=== PATIENT | male | born 1945 | race Caucasian/White ===

== ENCOUNTER 2018-07-01 11:42 | Day surgery (SDC) | payer MEDICARE ==
[~2018-07-01] VITALS: Ht 175.3 cm; Wt 112.5 kg
[~2018-07-01 11:42] MED LIST: AVANDAMET OR; BUSPAR15 MG PO; BUSPAR5 MG OR; CRESTOR20 MG PO; FLAGYL500 MG PO; FLOMAX0.4 M1 PO; GEMFIBROZIL600 MG OR; GLIPIZIDE10 MG PO; INDOCIN50 MG/CAP PO; JANUVIA100 MG PO; LEVAQUIN750 MG PO; LIPITOR10 MG OR; LIPITOR40 MG OR; LOPID600 MG PO; LOPRESSOR50 MG PO; METFORMIN500 MG PO; METOPROLOL50 MG OR; NITROSTAT0.4 MG SL; PERCOCET 10/31 COMBO PO; PREVACID30 M1 OR; PREVACID30 M1 PO; SERTRALINE50 MG PO; SYMBICORT 80-4.5MCG IN; TARKA PO; TARKA1 TA1 OR; TENORMIN100 MG PO; TOPROL XL200 MG OR; VICTOZA18 MG/3 ML SC; ZOLOFT25 MG OR; [UNRECOGNIZED DRUG - CODE] OR
[2018-07-01 17:23] VITALS: BP 143/65
[2018-07-01] MEDS ORDERED: DILAUDID4 MG PO (17:30)
== END 2018-07-01 17:45 | disposition home or self-care (01) ==
LOC: ORM 11:42
PROVIDERS: ATTEND Orthopaedic Surgery
PROC: 0MT30ZZ Resection of Right Elbow Bursa and Ligament, Open Approach (ICD-10-PCS; principal; 2018-07-01)
DX: M70.21 Olecranon bursitis, right elbow (principal); J44.9 Chronic obstructive pulmonary disease, unspecified; E11.9 Type 2 diabetes mellitus without complications; I10 Essential (primary) hypertension; M10.9 Gout, unspecified; Z87.891 Personal history of nicotine dependence

== ENCOUNTER → 2018-11-05 | Outpatient (REF) | payer MEDICARE ==
[~2018-11-05] MED LIST changes: +DILAUDID4 MG PO
== END | disposition home or self-care (01) ==
LOC: DI 12:22
PROVIDERS: ATTEND Physician Assistant Medical
DX: R05 Cough (principal)

== ENCOUNTER 2019-11-21 16:02 | Observation (INO) | payer MEDICARE ==
[~2019-11-21] VITALS: Ht 175.3 cm; Wt 109.2 kg
--- NOTE | 2019-11-21 16:02 | NUR ---
PT DIRECTLY TO ROOM FOR BEDSIDE TRIAGE.
[2019-11-21 16:45] LABS: HEMATOCRIT 38.9 % (39.0-50.0); HEMOGLOBIN 13.3 g/dl (14.0-18.0); IMMATURE GRANULOCYTES 0.3 % (0.0-5.0); MEAN CORPUSCULAR HGB 30.1 pG CALC (26.0-32.0); MEAN CORPUSCULAR HGB CONC 34.2 g/L CALC (32.0-36.0); NEUT# 9.39 thou/uL (1.82-7.42); RED BLOOD COUNT 4.42 mill/uL (4.70-6.10); RED CELL DISTRI WIDTH 13.7 % (11.5-15.5)
--- NOTE | 2019-11-21 17:00 | NUR ---
PT STATES PAIN IMPROVED SOMEWHAT, VS STABLE AND NO NEW COMPLAINTS OFFERED.
[2019-11-21 17:05] LABS: ALBUMIN 4.6 g/dL (3.2-5.0); ALKALINE PHOSPHATASE 57 u/l (38-126); ANION GAP 14 (6-22 (CALC)); BILIRUBIN, TOTAL 0.7 mg/dL (0.0-1.4); BUN 22 mg/dL (8-23); BUN/CREATININE RATIO 19 (12-20 (CALC)); CARBON DIOXIDE 24 mmol/l (22-30); CHLORIDE 103 mmol/l (95-108); CREATININE 1.1 mg/dL (0.7-1.3); GFR > 60 ML/MIN (>=60 (CALC)); GFR FOR AFR.AMER. > 60 ML/MIN (>=60 (CALC)); LIPASE 316 u/l (23-300); SGOT/AST 33 u/l (19-48); SODIUM 137 mmol/l (137-146); TOTAL PROTEIN 7.3 g/dL (6.3-8.2)
[2019-11-21 17:06] LABS: ACT PARTIAL THROMBO TIME 27.8 SECONDS (20.0-32.5); D-DIMER 0.41 mg/L (0.19-0.60); PROTHROMBIN TIME 10.8 SECONDS (9.0-12.5)
--- NOTE | 2019-11-21 18:00 | NUR ---
PT STATES PAIN IMPROVED NOW MORE OF A BURNING THROUGH OUT CHEST WALL AND EPIGASTRIC AREA, COMFORT MEASURES PROVIDED, CALL PALENCIA WITHIN REACH AND PT AWARE OF PLANNED ADMISSION FOR OBSERVATION
--- NOTE | 2019-11-21 18:40 | NUR ---
PT C/O NAUSEA AND EMESIS NOTED, MD AWARE MED ORDERED AND PT MEDICATED ACCORDINGLY, THEN AMBULATED TO BATHROOM FOR URINATION AND BM AND STATES FEELING MUCH BETTER
--- NOTE | 2019-11-21 18:44 | NUR ---
REPORT CALLED TO MEAGAN MAGAÑA.
--- NOTE | 2019-11-21 18:50 | NUR ---
PT TRASNPORTED TO MED SURG VIA WHEELCHAIR WITH TELE IN PLACE
[2019-11-21 19:20] VITALS: BP 148/72
[2019-11-21] MEDS ORDERED: LOPID600 MG PO (19:37)
--- NOTE | 2019-11-21 20:34 | NUR ---
PT MEDICATED ORDERS PROVIDE. NO S/O DISTRESS NOTED AT THIS TIME. PT ASSESSMENT AND ADMISSION COMPLETED AT THIS TIME. CALL LIGHT AT SIDE AND PT ENCOURAGED TO CALL NEEDS ARISE. REPORTS TOLERATING ICE CHIPS AT THIS TIME.
[2019-11-22 00:18] VITALS: BP 149/61
--- NOTE | 2019-11-22 01:15 | NUR ---
PT APPEARS TO BE SLEEPING, NO S/O DISTRESS NOTED. CALL LIGHT W/IN REACH.
--- NOTE | 2019-11-22 03:10 | NUR ---
PT REPORTED NOT BEING ABLE TO SLEEP AND BEING SLIGHTLY NAUSIOUS. HE IS IN LOW FOWLERS POSITION WATCHING TV. EXTRA PILLOW PROVIDED FOR COMFORT AND SALTINE CRACKERS W/DIET GINGERALE PROVIDED PER REQUEST. DENIED ANY OTHER NEEDS AT THIS TIME.
[2019-11-22 04:30] VITALS: BP 140/54
[2019-11-22 06:12] LABS: MAGNESIUM 1.7 mg/dL (1.6-2.3)
[2019-11-22 06:13] LABS: CHOLESTEROL HDL RATIO 8.3 (<4.4 (CALC))
--- NOTE | 2019-11-22 07:30 | NUR ---
PATIENT A/O X4, NO C/O PAIN, NO S/S RESP DISTRESS, PATIENT ON ROOM AIR, PATIENT NO C/O CHEST PAIN, NO C/O NAUSEA NO VOMITTING, PATIENT HEART RHYTHM IN NORMAL SINUS, PATIENT UP AB BHAVANA, PATIENT ABLE TO AMBULATE, PATIENT SKIN INTACT, LAST BOWEL MOVEMNT 11/15/19, WILL CONITINUE TO MONITOR PATIENT, CALL LIGHT WITHIN REACH
[2019-11-22 08:00] VITALS: BP 124/76
[2019-11-22] MEDS ORDERED: ZOFRAN4 MG/TAB PO (10:43)
[2019-11-22 11:03] VITALS: BP 129/63
--- NOTE | 2019-11-22 11:45 | NUR ---
PATIENT A/O, NO C/O PAIN, NO C/O CHEST PAIN, PATIENT NO S/S RESP DISTRESS, PATIENT ON ROOM AIR, PATIENT GLUCOSE LEVEL 122, PATIENT HEART RHYTHM IN NORMAL SINUS, PATIENT TROPONIN NEGATIVE X3, WILL CONTINUE TO MONITOR PATIENT, CALL LIGHT WITHIN REACH
--- NOTE | 2019-11-22 13:29 | NUR ---
PATIENT A/OX4, NO C/O PAIN, NO S/S RESP DISTRESS, PATIENT ON ROOM AIR, PATIENT DISCHARGED TO HOME SELF CARE, EDUCATED PATIENT ABOUT DC INSTRUCTIONS PATIENT STATED HE UNDERSTOOD DC INSTRUCTIONS, PATIENT NOTIFIED PRESCRIPTION FOR ZOFRAN SENT TO [facility], PATIENT IV REMOVED, PATIENT ASSISTED OFF FLOOR VIA WHEELCHAIR BY STAFF
== END 2019-11-22 13:26 | disposition home or self-care (01) ==
LOC: ED 16:02 → ED-I 17:40 → ED 18:07 → ED-I 18:08 → MS2 18:09
PROVIDERS: Emergency Medicine; ADMIT Internal Medicine; ATTEND Internal Medicine
DX: R07.9 Chest pain, unspecified (principal); K52.9 Noninfective gastroenteritis and colitis, unspecified; I10 Essential (primary) hypertension; E11.9 Type 2 diabetes mellitus without complications; I42.9 Cardiomyopathy, unspecified; E78.5 Hyperlipidemia, unspecified; J44.9 Chronic obstructive pulmonary disease, unspecified; Z87.891 Personal history of nicotine dependence; R06.02 Shortness of breath
CPT/HCPCS: G0378

== ENCOUNTER 2021-08-16 12:55 | Inpatient (IN) | payer MEDICARE ==
[~2021-08-16] VITALS: Ht 175.3 cm; Wt 107.7 kg
[~2021-08-16 12:55] MED LIST changes: +ZOFRAN4 MG/TAB PO
--- NOTE | 2021-08-16 13:02 | NUR ---
PT TO ROOM VIA WHEELCHAIR.
--- NOTE | 2021-08-16 13:10 | NUR ---
ACCUCHECK PERFORMED WITH RESULT OF 320-DR LUCIE MARLOW
[2021-08-16 13:38] LABS: HEMATOCRIT 36.8 % (39.0-50.0); HEMOGLOBIN 12.4 g/dl (14.0-18.0); IMMATURE GRANULOCYTES 0.2 % (0.0-5.0); MEAN CORPUSCULAR HGB 30.3 pG CALC (26.0-32.0); MEAN CORPUSCULAR HGB CONC 33.7 g/dL CAL (32.0-36.0); NEUT# 6.74 thou/uL (1.82-7.42); RED BLOOD COUNT 4.09 mill/uL (4.70-6.10); RED CELL DISTRI WIDTH 12.8 % (11.5-15.5)
[2021-08-16 13:47] LABS: ALBUMIN 4.1 g/dL (3.2-5.0); ALKALINE PHOSPHATASE 69 u/l (38-126); ANION GAP 17 (6-22 (CALC)); BILIRUBIN, TOTAL 0.6 mg/dL (0.0-1.4); BUN 18 mg/dL (8-23); BUN/CREATININE RATIO 11 (12-20 (CALC)); CHLORIDE 105 mmol/l (95-108); CREATININE 1.7 mg/dL (0.7-1.3); GFR 40 ML/MIN (>=60 (CALC)); GFR FOR AFR.AMER. 48 ML/MIN (>=60 (CALC)); SGOT/AST 39 u/l (19-48); SODIUM 136 mmol/l (137-146); TOTAL PROTEIN 6.8 g/dL (6.3-8.2)
[2021-08-16 13:51] LABS: CARBON DIOXIDE 18 mmol/l (22-30)
--- NOTE | 2021-08-16 14:40 | NUR ---
DR FAULKNER IN TO DO CENTRAL LINE IN RIGHT NECK. PT PREPPED, BECOMES ANXIOUS AND PROCEDURE HALTED. PT ASSISTED WITH SITTING UP AND CALMED.
--- NOTE | 2021-08-16 14:50 | NUR ---
DR FAULKNER PERFORMS CENTRAL LINE IN RIGHT FEMORAL. PT TOLRATES WELL.
--- NOTE | 2021-08-16 15:01 | NUR ---
NEOSYNEPHRINE 2ML GIVEN IV PUSH PER MD ORDER FOR HYPOTENSION
--- NOTE | 2021-08-16 15:04 | NUR ---
NEOSYNEPHRINE 2ML IV PUSH PER MD ORDER.
--- NOTE | 2021-08-16 15:07 | NUR ---
NEOSYNEPHRINE 2ML GIVEN IV PUSH PER MD ORDER.
--- NOTE | 2021-08-16 15:10 | NUR ---
16FR DEL REAL CATH PLACED, URINE RETURNED, 10ML BALLOON INFLATED. PT TOLERATED WELL. TUBING SECURED ON LEFT UPPER LEG.
--- NOTE | 2021-08-16 15:24 | NUR ---
NEOSYNEPHRINE 2ML IV PUSH PER MD ORDER.
--- NOTE | 2021-08-16 15:30 | NUR ---
PT TO CT VIA STRETCHER WITH ZOLL MONITOR ATTACHED. PT REMAINS WITH HYPOTENSION, AND IS SOMEWHAT ANXIOUS. RN STAYS WITH MT DURING IMAGING.
--- NOTE | 2021-08-16 15:40 | NUR ---
PT TRANSFERRED TO CT PLATFORM AND BECOMES ANXIOUS AND STATES HE IS HAVING DIFFICULTY BREATHING AND THAT HE IS GOING TO HAVE BOWEL MOVEMENT. PROCEDURE HALTED, PT ASSISTED WITH SITTING UP AND ASSISTED TO BSC. PT'S BREATHING IMPROVES. VSS-OXYGEN SAT IS UPPER 90S. PT ASSISTED BACK TO CT PLATFORM AND AFTER DISCUSSING WHAT NEEDS TO HAPPEN, PT IS AGREEABLE AND ABLE TO COMPLETE CT WITHOUT DIFFICULTY.
--- NOTE | 2021-08-16 16:22 | NUR ---
PT RETURNED FROM RADIOLOGY
[2021-08-16 16:32] LABS: IMMATURE GRANULOCYTES 0.3 % (0.0-5.0); MEAN CELL VOLUME 89.7 fL CALC (80.0-100.0); MEAN CORPUSCULAR HGB 30.3 pG CALC (26.0-32.0); MEAN CORPUSCULAR HGB CONC 33.8 g/dL CAL (32.0-36.0); NEUT# 11.63 thou/uL (1.82-7.42); RED BLOOD COUNT 3.4 mill/uL (4.70-6.10); RED CELL DISTRI WIDTH 12.9 % (11.5-15.5)
[2021-08-16 16:33] LABS: HEMATOCRIT 30.5 % (39.0-50.0); HEMOGLOBIN 10.3 g/dl (14.0-18.0)
--- NOTE | 2021-08-16 17:16 | NUR ---
DR FAULKNER IN TO SPEAK WITH PT ABOUT IMAGING RESULTS AND POC.
--- NOTE | 2021-08-16 17:29 | NUR ---
DR FAULKNER PERFORMED RECTAL EXAM, NO BLOOD PRESENT ON FECAL OCCULT.
[2021-08-16 17:49] LABS: URINE BILIRUBIN - DIPSTICK NEGATIVE (NEGATIVE); URINE BLOOD DIPSTICK SMALL (NEGATIVE); URINE COLOR YELLOW; URINE GLUCOSE - DIPSTICK 250 mg/dL (NEGATIVE); URINE KETONE NEGATIVE (NEGATIVE); URINE LEUK ESTERASE NEGATIVE (NEGATIVE); URINE PROTEIN - DIPSTICK >=300 mg/dL (NEG-TRACE); URINE SPECIFIC GRAVITY 1.025; URINE UROBILINOGEN - DIPSTICK 0.2 E.U./dL (0.2)
[2021-08-16 17:56] LABS: URINE NITRITE - DIPSTICK NEGATIVE (Negative)
[2021-08-16 17:57] LABS: URINE SQUAMOUS EPITHELIAL CELL MANY EPI/hpf (0-FEW)
--- NOTE | 2021-08-16 17:58 | NUR ---
SBAR REPORT CALLED TO [facility] ICU
--- NOTE | 2021-08-16 18:40 | NUR ---
PT TAKEN TO ICU VIA STRETCHER IN STABLE CONDITION. ZOLL MONITOR IN PLACE AT TIME OF ADMISSION. PT'S BELONGINGS AND PAPERWORK HANDED OFF TO [facility]AG[facility].
[2021-08-16 19:00] VITALS: BP 118/72
--- NOTE | 2021-08-16 19:00 | NUR ---
REPORT RECEIVED AT [facility] BEDSIDE FROM Hector PATRICK RN. CARE OF PT ASSUMED AT THIS TIME.
--- NOTE | 2021-08-16 19:39 | NUR ---
POINT OF CARE GLUCOSE 487mg/dl. STAT SERUM GLUCOSE ORDERED TO CONFIRM AND DRAWN FROM R-GROIN TLC.
[2021-08-16 20:00] VITALS: BP 140/60
--- NOTE | 2021-08-16 20:08 | NUR ---
SPOKE WITH DR. KAY GEE: GLUCOSE LEVEL, PT'S C/O ANXIETY, AND SOB W/ EXERTION. ORDERS FOR DUONEB, XANAX, AND HIGHER INSULIN COVERAGE AND ADDITIONAL LONG ACTING COVERAGE RECEIVED.
[2021-08-16 21:00] VITALS: BP 154/68
[2021-08-16 22:00] VITALS: BP 141/68
[2021-08-16 23:00] VITALS: BP 183/77
[2021-08-17] VITALS (14 sets, daily range): BP systolic 122–157; BP diastolic 58–74
--- NOTE | 2021-08-17 01:50 | NUR ---
LEVOPHED AND EPINEPHRINE GTT INCREMENTALLY TITRATED THROUGHOUT SHIFT. LEVO AND EPI GTT D/C'D AT THIS TIME. PT'S NIBP TOLERATES WELL.
--- NOTE | 2021-08-17 05:10 | NUR ---
AM LABS COLLECTED VIA RIGHT GROIN TLC.
[2021-08-17 05:52] LABS: HEMATOCRIT 31.5 % (39.0-50.0); HEMOGLOBIN 10.7 g/dl (14.0-18.0); MEAN CELL VOLUME 89.7 fL CALC (80.0-100.0); MEAN CORPUSCULAR HGB 30.5 pG CALC (26.0-32.0); RED BLOOD COUNT 3.51 mill/uL (4.70-6.10); RED CELL DISTRI WIDTH 13.1 % (11.5-15.5)
[2021-08-17 06:17] LABS: CREATININE 1.6 mg/dL (0.7-1.3); MAGNESIUM 1.6 mg/dL (1.6-2.3); POTASSIUM 3.6 mmol/l (3.5-5.1)
--- NOTE | 2021-08-17 07:49 | NUR ---
AMYMEG is a 76 year old Male. Admitted for septic shock. blood culture pending. Ht: 69 in, Wt: 106.4 kg, SCr 1.6 mg/dl:, CrCl (calc) = 49 ml/min WBC: 11.8 thou/ul , Tmax: 98.2 F . Tcurrent: 97.4 F HR: 77 beats/min, BP: 151/70 mmHg, RR 15 breaths/min,Sa02: 95 % Goal level is 15-20 mg/L. 1. Start vancomycin 1500 mg IV q24h. 2. Check trough 30 minutes before 4th dose on 08/19/21 at 1630. 3. Monitor BMP daily while on vancomycin 1500 mg IV q24h. Pharmacy will continue to follow.
--- NOTE | 2021-08-17 10:00 | NUR ---
PT IS AWAKE, ALERT, ORIENTED X 3. LUNGS CLEAR, RA. PT TO BSC FOR SMALL BM THIS MORNING. BLOOD PRESSURE REMAINS WNL WITHOUT PRESSORS. PT FEELS WELL, NO COMPLAINTS OR EVIDENCE OF DISTRESS.
--- NOTE | 2021-08-17 13:06 | NUR ---
PT WITHOUT CHANGE IN STATUS, REMAINS STABLE WITHOUT PRESSORS. HAS VISITED, IS TAKING HIS HEARING AIDES HOME WITH HER.
--- NOTE | 2021-08-17 17:30 | NUR ---
PT HAS BEEN TRANSFERRED TO MED/SURG FLOOR, [place] [id number]. REPORT WAS PROVIDED TO MARCIANO RHODES BY PHONE. PT LEAVES ICU IN STABLE CONDITION, TRANSPORTED BY WHEELCHAIR.
--- NOTE | 2021-08-17 18:10 | NUR ---
REPORT RECEIVED FROM RADHA IN ICU,PT TRANSPORTED TO UNIT VIA W/C @ 1810. ALERT AND ORIENTED X 4, DENIES DISCOMFORT/PAIN, ORIENTED TO ROOM AND CALL PALENCIA. IV ABT INFUSING TO SITE IN RIGHT GROIN, # 20 IV CATHETER ALSO NOTED IN RAC AND LAC BOTH SALINE LOCKED. TELE MONITOR IN PLACE, SETTLED IN BED WHICH IS IN LOWEST POSITION AND CALL LIGHT PLACED IN REACH.
--- NOTE | 2021-08-17 20:04 | NUR ---
PATIENT ALERT AND ORIENTED. ABLE TO MAKE NEEDS KNOWN. ASSESSMENT COMPLETE AT THIS TIME. CALL LIGHT AND BELONGINGS REMAIN IN PLACE.
--- NOTE | 2021-08-17 20:48 | NUR ---
GAVE PATIENT PRN XANAX PER REQUEST FOR INCREASED ANXIETY. PATIENT OBSERVED GETTING UP AND WALKING TOO AND FROM BATHROOM OFTEN TO VOID AND BM AT TIMES.
--- NOTE | 2021-08-17 23:45 | NUR ---
LEFT AC IV SITE OBSERVED RESTING ON PATIENTS ARM. CATHETER TIP INTACT.
[2021-08-18] VITALS: BP 159/76
--- NOTE | 2021-08-18 00:23 | NUR ---
PATIENT RESTING IN BED ON HIS RIGHT SIDE. NO SIGNS OF PAIN OR DISTRESS NOTED. CALL LIGHT AND BELONGINGS REMAIN IN REACH.
[2021-08-18 04:00] VITALS: BP 146/84
--- NOTE | 2021-08-18 04:29 | NUR ---
BLADDER SCANNED PATIENT DUE TO COMPLAINTS OF NOT BEING ABLE TO VOID FULLY. PATIENT WAS VOIDING THROUGH SHIFT, BUT MINIMAL AMOUNTS AT A TIME. BLADDER SCAN SHOWED 597CC. ORDER OBTAINED BY CONFECTIONERY COOKER PROVIDER TO STRAIGHT CATH PATIENT X1. OUTPUT OF 500CC YELLOW URINE WITH SMALL BLOOD CLOT LIKE SUBSTANCE.
[2021-08-18 06:22] LABS: ANION GAP 13 (6-22 (CALC)); BUN 13 mg/dL (8-23); BUN/CREATININE RATIO 11 (12-20 (CALC)); CARBON DIOXIDE 23 mmol/l (22-30); CHLORIDE 107 mmol/l (95-108); CREATININE 1.2 mg/dL (0.7-1.3); GFR 59 ML/MIN (>=60 (CALC)); GFR FOR AFR.AMER. > 60 ML/MIN (>=60 (CALC)); HEMATOCRIT 34.9 % (39.0-50.0); HEMOGLOBIN 11.8 g/dl (14.0-18.0); MAGNESIUM 1.6 mg/dL (1.6-2.3); MEAN CELL VOLUME 89.5 fL CALC (80.0-100.0); MEAN CORPUSCULAR HGB 30.3 pG CALC (26.0-32.0); MEAN CORPUSCULAR HGB CONC 33.8 g/dL CAL (32.0-36.0); POTASSIUM 3.9 mmol/l (3.5-5.1); RED BLOOD COUNT 3.9 mill/uL (4.70-6.10); RED CELL DISTRI WIDTH 13.1 % (11.5-15.5); SODIUM 140 mmol/l (137-146)
--- NOTE | 2021-08-18 07:14 | NUR ---
#20 IN THE RIGHT AC REMOVED. CATHETER TIP INTACT. PATIENT HAS ACCESS FROM TRIPLE LUMEN SITE TO RIGHT GROIN.
[2021-08-18 07:45] VITALS: BP 148/72
--- NOTE | 2021-08-18 07:45 | NUR ---
PATIENT LAYING IN BED AT THIS TIME DENIES PAIN. PATIENT LOKIE DRIVER DONE AT THIS TIME SEE INTERVENTIONS. PATIENT HAS TRIPLE LUMEN IN R CARMEN AND FLUSHED AT THIS TIME. TELE MONITOR IN PLACE CALL LIGHT WITHIN REACH.
[2021-08-18 10:56] VITALS: BP 173/79
[2021-08-18] MEDS ORDERED: AMOX/K CLAV875 M1 PO (11:07)
--- NOTE | 2021-08-18 11:13 | NUR ---
ZOYSIN HUNG AT THIS TIME PER PHYSICIAN PATIENT IS TO BE DISCHARGED AFTER ANTIBIOTIC INFUSED.
--- NOTE | 2021-08-18 12:18 | NUR ---
PATIENT SITTING UP IN CHAIR AT THIS TIME WITH AT BEDSIDE PATIENT ALERT AND ORIENTED AND D/C AT THIS TIME. PATIENT VERBALIZES UNDERSTANDING OF D/C AT THIS TIME.
--- NOTE | 2021-08-18 13:09 | NUR ---
PATIENT D/C AT THIS TIME PATIENT VERBALIZED UNDERSTANDING OF DC INSTRUCTIONS. PATIENT TRIPLE RIGHT GROIN CENTRAL LINE REMOVED UNDER ASCEPTIC TECHINQUE. LINE PULLED AND TIP INTACT. AREA CLEANSED WIHT CLOHOEXADINE SWAB AND BIO-PATCH PLACE WIHT TEGADERM PLACED AND PATIENT INSTRUCTED TO REMOVE IN 24 HRS. AND LET AIR AND PATIENT MAY SHOWER NORMAL. PATIENT AND PATINET FULLY UNDERSTOOD INSTRUCTION AT THIS TIME. TELE MONITOR REMOVED AND DANIELA IN ED NOTIFIED AT THIS TIME.
--- NOTE | 2021-08-18 13:26 | NUR ---
Discharge instructions given. Patient verbalizes understanding of same. Discharged in stable condition via Wheelchair to Home with family. All belongings sent with pt.
== END 2021-08-18 13:26 | disposition home or self-care (01) | DRG 871 ==
LOC: ED 12:55 → ED-I 17:10 → ED 17:30 → ICU 17:31 → MS2 23:02 → ICU 23:02 → MS2 08-17 18:10
PROVIDERS: Family Medicine; ADMIT Hospitalist; ATTEND Hospitalist
PROC: 06HY33Z Insertion of Infusion Device into Lower Vein, Percutaneous Approach (ICD-10-PCS; principal; 2021-08-16)
PROC: 0T9B70Z Drainage of Bladder with Drainage Device, Via Natural or Artificial Opening (ICD-10-PCS; 2021-08-16)
DX: A41.9 Sepsis, unspecified organism (principal); R65.21 Severe sepsis with septic shock; E87.2 Acidosis; I42.9 Cardiomyopathy, unspecified; I95.9 Hypotension, unspecified; I10 Essential (primary) hypertension; E11.9 Type 2 diabetes mellitus without complications; J44.9 Chronic obstructive pulmonary disease, unspecified; R19.7 Diarrhea, unspecified; E78.5 Hyperlipidemia, unspecified; F41.1 Generalized anxiety disorder; Z87.891 Personal history of nicotine dependence; Z79.84 Long term (current) use of oral hypoglycemic drugs; Z20.822 Contact with and (suspected) exposure to COVID-19
CPT/HCPCS: J3370; Q9967

== ENCOUNTER 2023-03-22 18:49 | Emergency (ER) | payer MEDICARE ==
[~2023-03-22] VITALS: Ht 175.3 cm; Wt 100.0 kg
[~2023-03-22 18:49] MED LIST changes: +AMOX/K CLAV875 M1 PO
[2023-03-22 19:56] VITALS: BP 134/58
== END 2023-03-22 21:49 | disposition home or self-care (01) ==
LOC: ED 18:49
DX: S81.811A Laceration without foreign body, right lower leg, initial encounter (principal); I10 Essential (primary) hypertension; E11.9 Type 2 diabetes mellitus without complications; J44.9 Chronic obstructive pulmonary disease, unspecified; W01.0XXA Fall on same level from slipping, tripping and stumbling without subsequent striking against object, initial encounter; Y92.009 Unspecified place in unspecified non-institutional (private) residence as the place of occurrence of the external cause; Z79.84 Long term (current) use of oral hypoglycemic drugs

== ENCOUNTER 2023-10-19 11:33 | Observation (INO) | payer MEDICARE ==
[~2023-10-19] VITALS: Ht 175.3 cm; Wt 74.8 kg
[2023-10-19] VITALS (18 sets, daily range): BP systolic 136–175; BP diastolic 70–96
--- NOTE | 2023-10-19 12:13 | NUR ---
PATIENT PRESENTS WITH GENERALIZED FATIQUE. FLU AND COVID SWABS OBTAINED.
--- NOTE | 2023-10-19 13:00 | NUR ---
PT IS ALERT. PT SITTING ON BEDSIDE. CALL LIGHT IN REACH.
[2023-10-19] MEDS ORDERED: MULTIPLE VITAMIN 10 ML,THIAMINE HCL 100 MG in DEXTROSE 5% / 0.9% NACL 1,000 ML IV ONE (13:45)
[2023-10-19 13:50] LABS: BASO% 0.5 % (0-3); EOS% 2.4 % (0-8); HEMATOCRIT 43.1 % (39.0-50.0); HEMOGLOBIN 14.3 g/dl (14.0-18.0); IMMATURE GRANULOCYTES 0.2 % (0.0-5.0); LYMPH% 10.1 % (15-41); MEAN CELL VOLUME 96.2 fL CALC (80.0-100.0); MEAN CORPUSCULAR HGB 31.9 pG CALC (26.0-32.0); MEAN CORPUSCULAR HGB CONC 33.2 g/dL CAL (32.0-36.0); MONO% 9.6 % (2-13); NEUT# 4.5 thou/uL (1.82-7.42); NEUT% 77.2 % (42-76); RED BLOOD COUNT 4.48 mill/uL (4.70-6.10); RED CELL DISTRI WIDTH 12.3 % (11.5-15.5)
--- NOTE | 2023-10-19 14:00 | NUR ---
PT ADVISED OF CONTINUED WAIT TIMES. PT VERBALIZED UNDERSTANING. PT COMFORTBLE. VSS
[2023-10-19 14:09] LABS: ALBUMIN 4.6 g/dL (3.2-5.0); ALKALINE PHOSPHATASE 100 u/l (38-126); BILIRUBIN, TOTAL 0.5 mg/dL (0.2-1.3); CHLORIDE 112 mmol/l (95-108); GFR FOR AFR.AMER. > 60 ML/MIN (>=60 (CALC)); GFR OTHER RACES > 60 ML/MIN (>=60 (CALC)); POTASSIUM 4.3 mmol/l (3.5-5.1); SGOT/AST 32 u/l (19-48); TOTAL PROTEIN 7.5 g/dL (6.3-8.2)
[2023-10-19 14:10] LABS: ANION GAP 15 (6-22 (CALC)); BUN 40 mg/dL (8-23); BUN/CREATININE RATIO 40 (12-20 (CALC)); CARBON DIOXIDE 30 mmol/l (22-30); SODIUM 153 mmol/l (137-146)
--- NOTE | 2023-10-19 15:10 | NUR ---
PT IS ALERT. VSS. CALL LIGHT IN REACH. PT PROVIDED A BLANKET.
--- NOTE | 2023-10-19 16:00 | NUR ---
PT SITTING IN CHAIR AT BEDSIDE. VSS. CALL LIGHT IN REACH.
--- NOTE | 2023-10-19 17:00 | NUR ---
PT VERBALIZED NO NEEDS. CALL LIGHT IN REACH. VSS.
[2023-10-19] MEDS ORDERED: SODIUM CHLORIDE 0.9% 1,000 ML IV ONE (17:25)
[2023-10-19] MEDS ORDERED: INSULIN REGULAR (HUMAN) 100 UNIT/ML INJ IV ONE (17:25)
--- NOTE | 2023-10-19 18:36 | NUR ---
PT IS RESTING. EASILY AROUSABLE. VSS. CALL LIGHT IN REACH.
[2023-10-19 20:19] LABS: ANION GAP 10 (6-22 (CALC)); BUN 36 mg/dL (8-23); BUN/CREATININE RATIO 45 (12-20 (CALC)); CARBON DIOXIDE 28 mmol/l (22-30); CHLORIDE 119 mmol/l (95-108); CREATININE 0.8 mg/dL (0.7-1.3); GFR FOR AFR.AMER. > 60 ML/MIN (>=60 (CALC)); GFR OTHER RACES > 60 ML/MIN (>=60 (CALC)); SODIUM 153 mmol/l (137-146)
--- NOTE | 2023-10-19 20:20 | NUR ---
PATIENT SITTING UP IN CHAIR WITH NO ACUTE DISTRESS NOTED.
[2023-10-19 20:59] LABS: URINE BILIRUBIN - DIPSTICK Negative (NEGATIVE); URINE BLOOD DIPSTICK Large (NEGATIVE); URINE COLOR Yellow; URINE GLUCOSE - DIPSTICK >=1000 mg/dL (NEGATIVE); URINE KETONE Negative (NEGATIVE); URINE LEUK ESTERASE Moderate (NEGATIVE); URINE NITRITE - DIPSTICK Negative (Negative); URINE PROTEIN - DIPSTICK Negative (NEG-TRACE); URINE UROBILINOGEN - DIPSTICK 0.2 E.U./dL (0.2)
--- NOTE | 2023-10-19 21:00 | NUR ---
NO CHANGES NOTED
[2023-10-19 21:01] LABS: URINE BACTERIA MANY hpf
[2023-10-19] MEDS ORDERED: SODIUM CHLORIDE 0.9% 1,000 ML IV PRN (21:30)
[2023-10-19] MEDS ORDERED: MAGNESIUM HYDROXIDE 30 ML UDC PO PRN (21:30)
[2023-10-19] MEDS ORDERED: ACETAMINOPHEN 325 MG/TAB PO PRN (21:30)
[2023-10-19] MEDS ORDERED: ONDANSETRON HCl 4 MG/2 ML SDV IV PRN (21:45)
--- NOTE | 2023-10-19 22:00 | NUR ---
NO CHANGES NOTED
--- NOTE | 2023-10-19 23:10 | NUR ---
RECEIVED REPORT FROM ED NURSE. PT WAS BROUGHT UP VIA WHEELCHAIR. PT IS NOW RESTING IN BED AT THIS TIME. PT ORIENTATED TO ROOM AND TO CALL LIGHT SYSTEM. PT AWARE OF PLAN OF CARE FOR THE NIGHT. PT DENIES OF PAIN AT THIS TIME. SAFETY PRECAUTIONS INPLACE AND CALL LIGHT WITHIN REACH.
--- NOTE | 2023-10-19 23:11 | NUR ---
PATIENT TRANSPORTED TO [facility] WITH TELE MONITOR IN PLACE.
[2023-10-20 04:02] VITALS: BP 146/74
--- NOTE | 2023-10-20 04:08 | NUR ---
PT IS IN BED AT THIS TIME SLEEPING COMFORTABLY. PT SHOWS NO SIGNS OF PAIN OR DISCOMFORT. SAFETY PRECAUTIONS IN PLACE AND CALL LIGHT WITHIN REACH.
[2023-10-20 04:54] LABS: BASO% 0.4 % (0-3); EOS% 3.6 % (0-8); MEAN CELL VOLUME 98.1 fL CALC (80.0-100.0); MEAN CORPUSCULAR HGB 31.8 pG CALC (26.0-32.0); MEAN CORPUSCULAR HGB CONC 32.4 g/dL CAL (32.0-36.0); MONO% 11.8 % (2-13); NEUT# 3.43 thou/uL (1.82-7.42); NEUT% 72.2 % (42-76); RED BLOOD COUNT 3.65 mill/uL (4.70-6.10); RED CELL DISTRI WIDTH 12.6 % (11.5-15.5)
[2023-10-20 05:14] LABS: HEMATOCRIT 35.8 % (39.0-50.0); HEMOGLOBIN 11.6 g/dl (14.0-18.0)
[2023-10-20 05:29] LABS: ALKALINE PHOSPHATASE 81 u/l (38-126); ANION GAP 8 (6-22 (CALC)); BILIRUBIN, TOTAL 0.3 mg/dL (0.2-1.3); BUN 35 mg/dL (8-23); BUN/CREATININE RATIO 43 (12-20 (CALC)); CARBON DIOXIDE 27 mmol/l (22-30); CHLORIDE 120 mmol/l (95-108); CREATININE 0.8 mg/dL (0.7-1.3); GFR FOR AFR.AMER. > 60 ML/MIN (>=60 (CALC)); GFR OTHER RACES > 60 ML/MIN (>=60 (CALC)); POTASSIUM 3.5 mmol/l (3.5-5.1); SGOT/AST 23 u/l (19-48); SODIUM 152 mmol/l (137-146)
[2023-10-20 05:36] LABS: ALBUMIN 3.3 g/dL (3.2-5.0); TOTAL PROTEIN 5.7 g/dL (6.3-8.2)
[2023-10-20] MEDS ORDERED: SODIUM CHLORIDE 0.45% 1,000 ML IV PRN (06:25)
[2023-10-20] MEDS ORDERED: INSULIN LISPRO 100 UNITS/ML ML SC SCH ×2 (07:00)
[2023-10-20 07:32] VITALS: BP 182/72
--- NOTE | 2023-10-20 08:00 | NUR ---
RESTING IN BED. ALERT ORIENTED REQUESTION TO SEE MD. NOTIFIED MD HAS NOT ARRIVED OF YET BUT WILL BE IN SOON TO MAKE ROUNDS. CALL LIGHT IN REACH.
[2023-10-20] MEDS ORDERED: ALLOPURINOL 100 MG/TAB PO SCH (09:00)
[2023-10-20] MEDS ORDERED: SERTRALINE HCL 50 MG/TAB PO SCH (09:00)
[2023-10-20] MEDS ORDERED: busPIRone HCL 5 MG/TAB PO SCH (09:00)
[2023-10-20] MEDS ORDERED: VERAPAMIL HCL PO SCH (09:00)
[2023-10-20] MEDS ORDERED: hydrALAZINE HCL 20 MG/ML VIAL(1 ML) IV PRN (11:25)
[2023-10-20] MEDS ORDERED: LOSARTAN Potassium 25 MG/TAB PO SCH (12:00)
[2023-10-20 13:05] LABS: ANION GAP 10 (6-22 (CALC)); BUN 30 mg/dL (8-23); BUN/CREATININE RATIO 35 (12-20 (CALC)); CARBON DIOXIDE 29 mmol/l (22-30); CHLORIDE 117 mmol/l (95-108); CREATININE 0.9 mg/dL (0.7-1.3); GFR FOR AFR.AMER. > 60 ML/MIN (>=60 (CALC)); GFR OTHER RACES > 60 ML/MIN (>=60 (CALC)); POTASSIUM 3.7 mmol/l (3.5-5.1); SODIUM 152 mmol/l (137-146)
[2023-10-20] MEDS ORDERED: ALPRAZolam 0.25 MG PO PRN (16:05)
--- NOTE | 2023-10-20 17:00 | NUR ---
SECOND BOLUS FEEDING OF JEVITY GIVEN. MD SPOKE WITH PATIENT ABOUT BEING ON GLUCERNA VS JEVITY DUE TO DIABETES FREINDLY. PATIENT STATED HE WAS NOT INTERESTED IN CHANGING ANY OF THAT. ZOFRAN PREMEDICATED TO AVOID NAUSEA WITH THE FEEDINGS. PATIENT STATED HE HAD NOT GIVEN HIMDELF ANYTHING THROUGH THE TUBE IN 2 OR 3 DAYS DUE TO THE NAUSEA. MD MADE AWARE.
[2023-10-20 18:50] LABS: ANION GAP 17 (6-22 (CALC)); BUN 27 mg/dL (8-23); BUN/CREATININE RATIO 33 (12-20 (CALC)); CARBON DIOXIDE 25 mmol/l (22-30); CHLORIDE 113 mmol/l (95-108); CREATININE 0.8 mg/dL (0.7-1.3); GFR FOR AFR.AMER. > 60 ML/MIN (>=60 (CALC)); GFR OTHER RACES > 60 ML/MIN (>=60 (CALC)); POTASSIUM 3.1 mmol/l (3.5-5.1); SODIUM 152 mmol/l (137-146)
[2023-10-20 19:35] VITALS: BP 126/55
--- NOTE | 2023-10-20 19:54 | NUR ---
JEVITY 1.5 GIVEN VIA PEG TUBE. HAD SLIGHT NAUSEA WITH LAST 50CC OF FEEDING. EXPRESSED NEED TO CALL FOR ASSISTANCE WITH AMBULATING AND GOING TO BATHROOM DUE TO WEAKNESS AND IV FLUIDS. BECAME VERBALLY CONFRONTATIONAL. PATIENTS AFFECT IS SOMEWHAT DEPRESSED. BECOMES CONFRONTATIONAL WHEN ASKED TO DO ANYTHING HE IS NOT AGREEABLE WITH, SUCH CALLING FOR ASSISTANCE WITH BATHROOM. CALL LIGHT IN REACH.
[2023-10-20] MEDS ORDERED: ENOXAPARIN SODIUM 40 MG/0.4 ML SYR SC SCH (21:00)
--- NOTE | 2023-10-20 21:50 | NUR ---
PT IN BED NO S/S OF DISTRESS NOTED. BREATHING IS EVEN AND UNLABORED. PT DENIES PAIN OR DISCOMFORT. SHIFT ASSESMMET COMPLETED. PT IS AT ROOM AIR. LUNGS ARE CLEAR ALL LOBES. PEG TUNE IN PLACE. PT FEED VIA PEG TUBE WITHOUT COMPLICATIONS. PT RESIDUEAL IS 0 CC. PT AMBULATED TO RESTROOM AND BACK TO BED. IV TO LAC INFUSING 0.45 NORMAL SALINE. NO NEEDS OR CONCERN VOICED AT THIS TIME. CALL LIGHT IN REACH AND BED IN LOWEST POSITION.
[2023-10-20 23:21] VITALS: BP 123/62
--- NOTE | 2023-10-21 02:30 | NUR ---
PT FEED VIA PEG TUBE WIHTOUT COMPLICATIONS. DENIES PAIN OR DISCOMFORT. CALL LIGHT IN REACH AND BED IN LOWEST POSITION.
[2023-10-21 03:37] VITALS: BP 136/56
--- NOTE | 2023-10-21 04:32 | NUR ---
PT IN BED RESTING WITH EYES CLOSED BREATHING EVEN AND UNLABORED. NO S/S OF DISTRESSCNOTED. CALL LIGHT IN REACH AND BED IN LOWEST POSITION.
[2023-10-21 05:34] LABS: BASO% 0.6 % (0-3); EOS% 3.8 % (0-8); HEMATOCRIT 32.3 % (39.0-50.0); HEMOGLOBIN 10.8 g/dl (14.0-18.0); IMMATURE GRANULOCYTES 0.4 % (0.0-5.0); LYMPH% 13.4 % (15-41); MEAN CELL VOLUME 96.4 fL CALC (80.0-100.0); MEAN CORPUSCULAR HGB 32.2 pG CALC (26.0-32.0); MEAN CORPUSCULAR HGB CONC 33.4 g/dL CAL (32.0-36.0); MONO% 10.4 % (2-13); NEUT# 3.35 thou/uL (1.82-7.42); NEUT% 71.4 % (42-76); RED BLOOD COUNT 3.35 mill/uL (4.70-6.10); RED CELL DISTRI WIDTH 12.4 % (11.5-15.5)
[2023-10-21 05:54] LABS: ANION GAP 7 (6-22 (CALC)); BUN 26 mg/dL (8-23); BUN/CREATININE RATIO 34 (12-20 (CALC)); CARBON DIOXIDE 27 mmol/l (22-30); CHLORIDE 113 mmol/l (95-108); CREATININE 0.8 mg/dL (0.7-1.3); GFR FOR AFR.AMER. > 60 ML/MIN (>=60 (CALC)); GFR OTHER RACES > 60 ML/MIN (>=60 (CALC)); POTASSIUM 3.3 mmol/l (3.5-5.1)
[2023-10-21 05:55] LABS: SODIUM 144 mmol/l (137-146)
[2023-10-21 08:52] VITALS: BP 129/76
[2023-10-21] MEDS ORDERED: LOSARTAN Potassium 50 MG/TAB PO SCH (09:00)
[2023-10-21] MEDS ORDERED: POTASSIUM CHLORIDE 20 MEQ/TAB PO SCH (09:00)
--- NOTE | 2023-10-21 10:19 | NUR ---
BEDSIDE SHIFT REPORT COMPLETED. DENIES NEEDS AT PRESENT TIME. CALL LIGHT WITHIN REACH. HAD SHOWER THIS AM. FAMILY AT BEDSIDE. REFUSED TELE AFTER SHOWER. AWAITING MD ROUNDING. REQUESTING TO GO HOME.
[2023-10-21] MEDS ORDERED: OMNICEF300 MG PO (10:33)
[2023-10-21 10:50] VITALS: BP 129/76
--- NOTE | 2023-10-21 12:50 | NUR ---
Discharge instructions given. Patient verbalizes understanding of same. Discharged in stable condition via Wheelchair to Home with spouse. All belongings sent with pt. IV site discontinued, cath intact. No edema , no redness, voices no discomfort.
== END 2023-10-21 11:43 | disposition home or self-care (01) ==
LOC: ED 11:33 → MS2 21:21
PROVIDERS: Emergency Medicine; ADMIT Student in an Organized Health Care Education/Training Program; ATTEND Student in an Organized Health Care Education/Training Program
DX: E87.0 Hyperosmolality and hypernatremia (principal); N39.0 Urinary tract infection, site not specified; B95.7 Other staphylococcus as the cause of diseases classified elsewhere; N17.9 Acute kidney failure, unspecified; E86.0 Dehydration; C14.0 Malignant neoplasm of pharynx, unspecified; I10 Essential (primary) hypertension; E11.9 Type 2 diabetes mellitus without complications; J44.9 Chronic obstructive pulmonary disease, unspecified; I42.9 Cardiomyopathy, unspecified; Z93.1 Gastrostomy status; Z87.891 Personal history of nicotine dependence; Z92.21 Personal history of antineoplastic chemotherapy; Z92.3 Personal history of irradiation; Z20.822 Contact with and (suspected) exposure to COVID-19
CPT/HCPCS: J1650